=== PATIENT | female | born 1980 | race Caucasian/White ===

== ENCOUNTER 2020-08-22 11:36 | Emergency (ER) | payer BC, OTHER ==
[~2020-08-22 11:36] MED LIST: IBUPROFEN600 MG PO; KEFLEX CAP 500500 MG PO; KEPPRA500 MG PO
[2020-08-22 13:19] LABS: RED BLOOD COUNT 3.58 M/UL (4.00-5.10); WHITE BLOOD COUNT 6.9 K/UL (4.5-11.0)
[2020-08-22 13:41] LABS: BUN/CREATININE RATIO 20 (0-10)
[2020-08-22] MEDS ORDERED: CEFUROXIME500 MG PO (17:36)
[2020-08-22] MEDS ORDERED: MAGNESIUM OXID400 M1 PO (17:36)
== END 2020-08-22 18:40 | disposition home or self-care (01) ==
LOC: ER1 11:36
PROVIDERS: Physician Assistant
DX: E61.2 Magnesium deficiency (principal); N39.0 Urinary tract infection, site not specified; R79.89 Other specified abnormal findings of blood chemistry; Z79.899 Other long term (current) drug therapy
CPT/HCPCS: 36600; 70450; 80053; 81001; 82607; 82746; 82803; 83735; 84703; 85025; 87086; 96365; 99285; J3475; J7030

== ENCOUNTER 2021-01-11 17:20 | Emergency (ER) | payer BC, OTHER ==
[~2021-01-11 17:20] MED LIST changes: +CEFUROXIME500 MG PO; +MAGNESIUM OXID400 M1 PO
[2021-01-11 19:49] LABS: HEMOGLOBIN 12.3 gm/dl (12.3-15.3); RED BLOOD COUNT 3.53 M/UL (4.00-5.10); WHITE BLOOD COUNT 7.8 K/UL (4.5-11.0)
[2021-01-11 19:55] LABS: BUN/CREATININE RATIO 21 (0-10)
[2021-01-11] MEDS ORDERED: MACROBID 100 M100 M1 PO (20:39)
== END 2021-01-11 21:16 | disposition home or self-care (01) ==
LOC: ER1 17:20
PROVIDERS: Family Medicine
DX: G40.909 Epilepsy, unspecified, not intractable, without status epilepticus (principal); S00.512A Abrasion of oral cavity, initial encounter; N39.0 Urinary tract infection, site not specified; D69.6 Thrombocytopenia, unspecified; I10 Essential (primary) hypertension
CPT/HCPCS: 70450; 80048; 81001; 84703; 85025; 93005; 99285